=== PATIENT | female | born 1945 | race Caucasian/White ===

== ENCOUNTER 2024-10-29 03:05 | Emergency (ER) | payer MEDICARE ==
[2024-10-29] MEDS: Sodium Chloride 0.9% 10 ML Syringe FLUSH PRN (03:20)
[2024-10-29] MEDS: Ondansetron 4 MG/2 ML SDV IVPUSH ONE (03:45)
[2024-10-29] MEDS: Sodium Chloride 0.9% 1,000 ML IV ONE ×2 (03:45→04:56)
[2024-10-29] MEDS: Ketorolac 15 MG/ML SDV IVPUSH ONE (03:47)
[2024-10-29 03:54] LABS: BASOPHILS PERCENT AUTO 0.9 % (0.2-1.5); EOSINOPHILS ABSOLUTE AUTO 0.1 x10-3/uL (0.0-0.8); EOSINOPHILS PERCENT AUTO 2.3 % (0.6-8.1); HEMATOCRIT 41.6 % (34.2-48.2); HEMOGLOBIN 14.1 g/dL (11.4-15.5); LYMPHOCYTES PERCENT AUTO 38.5 % (18.4-52.1); MEAN CORPUSCULAR HEMOGLOBIN 30.8 pg (23.9-33.9); MEAN CORPUSCULAR HGB CONC 33.9 g/dL (31.9-34.8); MEAN CORPUSCULAR VOLUME 90.7 fL (76.7-100.5); MEAN PLATELET VOLUME 9.6 fL (7.1-12.4); MONOCYTES ABSOLUTE AUTO 0.3 x10-3/uL (0.3-1.0); MONOCYTES PERCENT AUTO 6.2 % (4.4-15.7); NEUTROPHILS ABSOLUTE AUTO 2.7 x10-3/uL (1.5-6.3); NEUTROPHILS PERCENT AUTO 52.1 % (30.8-76.2); PLATELET COUNT,PLT 211 x10(3)uL (151-488); RED BLOOD CELL COUNT 4.58 x10(6)uL (3.60-5.20); RED CELL DISTRIBUTION WIDTH 13.4 % (12.3-16.5); WHITE BLOOD CELL COUNT,WBC 5.1 x10-3/uL (3.0-10.3)
[2024-10-29 04:02] LABS: LIPASE 37 U/L (16-77)
[2024-10-29 04:03] LABS: C-REACTIVE PROTEIN < 0.50 mg/dL (<0.50)
[2024-10-29 04:07] LABS: ALANINE AMINOTRANSFERASE,ALT 29 U/L (12-36); ALBUMIN 3.3 g/dL (3.2-4.6); ALKALINE PHOSPHATASE 80 IU/L (56-112); ASPARTATE AMNIOTRANSFERASE,AST 18 IU/L (5-25); BILIRUBIN TOTAL 0.4 mg/dL (0.1-1.3); BLOOD UREA NITROGEN,BUN 18 mg/dL (7-18); CALCIUM 9.1 mg/dL (8.6-10.2); CARBON DIOXIDE,CO2 24 mmol/L (21-32); CREATININE 0.9 mg/dL (0.55-1.02); EST CRCL DRUG DOSING (CG) 38.25 mL/min; ESTIMATED GFR 65 mL/min (>60); GLUCOSE RANDOM 140 mg/dL (80-116); POTASSIUM,K 3.6 mmol/L (3.5-5.3); PROTEIN TOTAL,TP 6.5 g/dL (6.0-8.0)
[2024-10-29 04:12] LABS: LACTIC ACID 2.6 mmol/L (0.4-2.0)
[2024-10-29 04:17] LABS: CHLORIDE,CL 107 mmol/L (100-110)
[2024-10-29 04:18] LABS: SODIUM,NA 142 mmol/L (135-145)
[2024-10-29] MEDS: Tamsulosin 0.4 MG Cap.ER PO ONE (05:06)
== END 2024-10-29 05:45 | disposition home or self-care (01) ==
LOC: SUPCPDRO 03:05 → FB.ED 03:05
DX: N13.2 Hydronephrosis with renal and ureteral calculous obstruction (principal); I10 Essential (primary) hypertension; Z90.49 Acquired absence of other specified parts of digestive tract
CPT/HCPCS: 36415; 74176; 80053; 83605; 83690; 85025; 86140; 96361; 96374; 96375; 99284; A9270; J1885; J2405; J7030

== ENCOUNTER 2025-01-12 08:16 | Day surgery (SDC) | payer MEDICARE ==
[~2025-01-12 08:16] MED LIST: Sodium Chloride 0.9% 10 ML Syringe FLUSH PRN
[2025-01-12] MEDS ORDERED: Midazolam 1 MG/ML 2 ML SDV IV ONE (08:17)
[2025-01-12] MEDS ORDERED: Propofol 200 MG/20 ML SDV IV ONE (08:17)
[2025-01-12] MEDS: Lactated Ringers 1,000 ML IV SCH (09:10)
== END 2025-01-12 12:15 | disposition home or self-care (01) ==
LOC: FB.SDS 08:16
PROVIDERS: ATTEND Surgery
DX: K29.50 Unspecified chronic gastritis without bleeding (principal); K31.7 Polyp of stomach and duodenum; K63.5 Polyp of colon; K44.9 Diaphragmatic hernia without obstruction or gangrene; K21.9 Gastro-esophageal reflux disease without esophagitis; K57.30 Diverticulosis of large intestine without perforation or abscess without bleeding; Z79.82 Long term (current) use of aspirin; Z79.899 Other long term (current) drug therapy
CPT/HCPCS: 00813; 88305; 88342; 99100; A9270-GY; J2003; J2250; J2704; J7120